=== PATIENT | male | born 1995 | race Asian ===

== ENCOUNTER 2016-07-06 09:56 | Emergency (ER) | payer OTHER ==
[2016-07-06 10:02] VITALS: BP 127/76; PULSE 99; TEMP 98.2; BMI 23.5
--- NOTE | 2016-07-06 10:28 | PDOC ---
History of Present Illness - General Chief Complaint: Asthma Stated Complaint: ASTHMA Time Seen by Provider: 07/06/16 10:16 History Source: Patient - History of Present Illness Timing/Duration: reports: other Associated Symptoms: reports: cough, shortness of breath. denies: earache, fever/chills, nasal congestion, nasal drainage, sore throat, wheezing Past History - Past Medical History Allergies/Adverse Reactions: Allergies Allergy/AdvReac Type Severity Reaction Status Date / Time No Known Drug Allergies Allergy Verified 07/06/16 09:59 shrimp Allergy Verified 07/06/16 09:59 Home Medications: Ambulatory Orders Albuterol 0.083% Nebulizer Cat [Ventolin 0.083% Nebulizer Soln -] 1 neb NEB Q4H #30 vial 07/06/16 Albuterol Sulfate Inhaler - [Ventolin HFA Inhaler -] 1 - 2 inh PO Q4H #1 inhaler 07/06/16 Asthma: Yes - Psycho/Social/Smoking Cessation Hx Anxiety: No Suicidal Ideation: No Smoking History: Never smoked Hx Alcohol Use: No Drug/Substance Use Hx: No Substance Use Type: None Review of Systems - Review of Systems Constitutional: No: Chills, Fever HEENTM: No: Ear Pain, Throat Pain Respiratory: Yes: Cough, Shortness of Breath. No: Wheezing *Physical Exam - Vital Signs Last Vital Signs Temp Pulse Resp BP Pulse Ox 98.2 F 99 H 18 127/76 100 07/06/16 09:58 07/06/16 09:58 07/06/16 09:58 07/06/16 09:58 07/06/16 09:58 - Physical Exam Comments: 07/06/16 10:29 Pt is comfortable, currently sitting in chair in ED and texting on his phone General Appearance: Yes: Appropriately Dressed. No: Apparent Distress HEENT: positive: Normal ENT Inspection, Normal Voice, Scleral Icterus (R), Scleral Icterus (L). negative: Muffled/Hoarse voice Neck: positive: Supple. negative: Lymphadenopathy (R), Lymphadenopathy (L) Respiratory/Chest: positive: Lungs Clear, Normal Breath Sounds. negative: Respiratory Distress, Wheezing Cardiovascular: positive: Regular Rate, S1, S2 Integumentary: positive: Dry, Warm Neurologic: positive: Fully Oriented, Alert, Normal Mood/Affect Medical Decision Making - Medical Decision Making 07/06/16 10:25 21 yo M, h/o mild intermittent asthma, no admissions/intubations, here for refill of his asthma meds. Pt not c/o sob/wheezing currently but did has a cough w/ sob several days ago but states sob did improve w/ nebs last night. Pt well shu and stable w/ clear chest/lungs. dc w/ med refill 07/06/16 10:30 *DC/Admit/Observation/Transfer Diagnosis at time of Disposition: URI, acute - Discharge Dispostion Disposition: HOME Condition at time of disposition: Good - Prescriptions Prescriptions: Albuterol 0.083% Nebulizer Cat [Ventolin 0.083% Nebulizer Soln -] 1 neb NEB Q4H #30 vial Albuterol Sulfate Inhaler - [Ventolin HFA Inhaler -] 1 - 2 inh PO Q4H #1 inhaler - Referrals Referrals: Som Mclean [Primary Care Provider] - - Patient Instructions Additional Instructions: Tale medication as needed
== END 2016-07-06 10:39 | disposition home or self-care (01) ==
LOC: SUPCPDRO 09:56 → JERFT 09:56
DX: J06.9 Acute upper respiratory infection, unspecified (principal)
CPT/HCPCS: 99281-25

== ENCOUNTER 2019-08-26 20:57 | Emergency (ER) | payer OTHER ==
[2019-08-26 21:03] VITALS: BP 154/91; PULSE 112; TEMP 98.8; BMI 22.7
--- NOTE | 2019-08-26 22:19 | PDOC ---
History of Present Illness - General Chief Complaint: Cold Symptoms Stated Complaint: ASTHMA AND FLU Time Seen by Provider: 08/26/19 22:15 History Source: Patient - History of Present Illness Initial Comments: 08/26/19 22:44 Chief complaint: Fever and cough Patient is 24-year-old male with history of asthma who states that he got sick on Friday, saw his doctor, given Radhajosé miguel Brandon. Now has a fever and feels sicker. Patient does not look acutely ill. Patient states he feels like his asthma started bothering him today. GENERAL/CONSTITUTIONAL: No fever, weakness. dizziness HEAD, EYES, EARS, NOSE AND THROAT: No change in vision. No ear pain or discharge. No sore throat. CARDIOVASCULAR: No chest pain RESPIRATORY: No shortness of breath +cough GASTROINTESTINAL: No pain, nausea, vomiting, diarrhea or constipation GENITOURINARY: No dysuria MUSCULOSKELETAL: No neck or back pain SKIN: No rash NEUROLOGIC: No headache, vertigo, loss of consciousness, or loss of sensation. GENERAL: The patient is awake, alert, and fully oriented, in no acute distress. HEAD: Normal with no signs of trauma. EYES: Pupils equal, round and reactive to light, sclera anicteric, conjunctiva clear. ENT: pharynx: no erythema, no exudate, uvula midline NECK: supple CHEST: clear, seems a little tight, no wheezing nontender, rr ABD: soft, nontender BACK: no tenderness or signs of injury EXTREMITIES: Normal range of motion, no edema. NEUROLOGICAL: Normal speech, normal gait. SKIN: Warm, Dry Past History - Past Medical History Allergies/Adverse Reactions: Allergies Allergy/AdvReac Type Severity Reaction Status Date / Time No Known Drug Allergies Allergy Verified 07/06/16 09:59 shrimp Allergy Verified 07/06/16 09:59 Home Medications: Ambulatory Orders Albuterol 0.083% Nebulizer Cat [Ventolin 0.083% Nebulizer Soln -] 1 neb NEB Q4H #30 vial 07/06/16 Albuterol Sulfate Inhaler - [Ventolin HFA Inhaler -] 1 - 2 inh PO Q4H #1 inhaler 07/06/16 Albuterol Sulfate Inhaler - [Ventolin Hfa Inhaler -] 2 inh PO Q4H #1 inh 08/26/19 Asthma: Yes COPD: No - Psycho Social/Smoking Cessation Hx Smoking History: Never smoked Hx Alcohol Use: No Drug/Substance Use Hx: No Substance Use Type: None *Physical Exam - Vital Signs Last Vital Signs Temp Pulse Resp BP Pulse Ox 98.8 F 112 H 19 154/91 98 08/26/19 20:59 08/26/19 20:59 08/26/19 20:59 08/26/19 20:59 08/26/19 20:59 Medical Decision Making - Medical Decision Making 08/26/19 22:45 24-year-old male history of asthma, with URI symptoms for 2 to 3 days, now with fever. Patient is not short of breath, no gross wheezing but seems a little tight. Patient states that he did feel like he had to use his asthma pump today but it was . Patient will get DuoNeb treatment, flu screening. Patient needs work note Discussed issues, findings, results, applicable medications and treatments and follow-up. All these were understood and all questions were answered Discharge - Discharge Information Problems reviewed: Yes Clinical Impression/Diagnosis: URI, acute Asthma Qualifiers: Asthma severity: moderate Asthma persistence: unspecified Asthma complication type: uncomplicated Qualified Code(s): J45.909 - Unspecified asthma, uncomplicated Condition: Stable Disposition: HOME - Additional Discharge Information Prescriptions: Albuterol Sulfate Inhaler - [Ventolin Hfa Inhaler -] 2 inh PO Q4H #1 inh - Follow up/Referral Referrals: Som Mclean [Primary Care Provider] - - Patient Discharge Instructions Patient Printed Discharge Instructions: DI for Viral Upper Respiratory Infection -- Adult Additional Instructions: Drink 2-3 L of water daily Can use your albuterol inhaler, 2 puffs every 4-6 hours Take Tylenol 650 mg every 4 hours or Motrin 600 mg every 6 hours for fever and pain Return to the nearest ER if short of breath, unable to swallow or feeling sicker Followup with your doctor in one to 2 days - Post Discharge Activity
[2019-08-26] MEDS ORDERED: ALBUTEROL SO4 2.5/IPRATROPIUM 0.5 INH SOL 3 ML VIAL.NEB. NEB ONE ×2 (22:23→22:27)
--- NOTE | 2019-08-26 23:27 | PDOC ---
*Physical Exam - Vital Signs Last Vital Signs Temp Pulse Resp BP Pulse Ox 98.8 F 112 H 19 154/91 98 08/26/19 20:59 08/26/19 20:59 08/26/19 20:59 08/26/19 20:59 08/26/19 20:59 ED Treatment Course - Medications Given in the ED: ED Medications Discontinued Medications Generic Name Dose Route Start Last Admin Trade Name Jm PRN Reason Stop Dose Admin Albuterol/Ipratropium 1 amp 08/26/19 22:23 08/26/19 22:26 Duoneb - NEB 08/26/19 22:24 1 amp ONCE ONE Administration Medical Decision Making - Medical Decision Making 08/26/19 23:25 Pt was signed out to me by REJI Suárez at 23:00 Flu negative Likely an asthma exacerbation Inhaler refilled Advise to stay home until symptoms have resolved, no COVID exposures, pt afebrile I discussed the physical exam findings, ancillary test results and final diagnoses with the patient. I answered all of the patient's questions. The patient was satisfied with the care received and felt comfortable with the d ischarge plan and treatment plan. The Patient agrees to follow up with the primary care physician/specialist within 24-72 hours. Return precautions were given. Discharge - Discharge Information Clinical Impression/Diagnosis: URI, acute Asthma Qualifiers: Asthma severity: moderate Asthma persistence: unspecified Asthma complication type: uncomplicated Qualified Code(s): J45.909 - Unspecified asthma, un complicated Condition: Stable Disposition: HOME - Additional Discharge Information Prescriptions: Albuterol Sulfate Inhaler - [Ventolin Hfa Inhaler -] 2 inh PO Q4H #1 inh - Follow up/Referral Referrals: oSm Mclean [Primary Care Provider] - - Patient Discharge Instructions Patient Printed Discharge Instructions: DI for Viral Upper Respiratory Infection -- Adult Additional Instructions: Drink 2-3 L of water daily Can use your albuterol inhaler, 2 puffs every 4-6 hours Take Tylenol 650 mg every 4 hours or Motrin 600 mg every 6 hours for fever and pain Return to the nearest ER if short of breath, unable to swallow or feeling sicker Followup with your doctor in one to 2 days - Post Discharge Activity Work/Back to School Note: Back to Work
== END 2019-08-26 23:15 | disposition home or self-care (01) ==
LOC: JERFT 20:57
PROC: 3E0F7GC Introduction of Other Therapeutic Substance into Respiratory Tract, Via Natural or Artificial Opening (ICD-10-PCS; principal; 2019-08-26)
DX: J06.9 Acute upper respiratory infection, unspecified (principal); J45.909 Unspecified asthma, uncomplicated
CPT/HCPCS: 87804; 99283-25